=== PATIENT | male | born 1995 | race Caucasian/White ===

== ENCOUNTER 2017-01-03 08:07 | Emergency (ER) | payer SELFPAY ==
--- NOTE | 2017-01-03 09:11 | RAD ---
INDICATION: Right ankle injury. TECHNIQUE: 3 views of the right ankle were obtained. FINDINGS: Soft tissue swelling is noted along the anterolateral aspect of the ankle. No fracture is seen. Joint spaces appear maintained. IMPRESSION: SOFT TISSUE SWELLING, NO FRACTURE IS SEEN.
--- NOTE | 2017-01-03 09:37 | UC ---
Narda Rob Janilya, scribed for Diane Del Cid MD on 01/03/17 at 0841 . Lower Extremity/Ankle HPI - HPI Summary HPI Summary: A 21 y/o male came in to [facility] presenting w/ a gradual onset of constant right ankle pain starting January 03 at around 2000. Pt states he was playing basketball when he rolled his ankle outwards. He was given ice on site. He immediately stopped the game and iced and rested and then and then walked home but could barely put any weight on his foot. At home, pt used ice intermittently every 30 mins. The pain was manageable, however, he woke up in severe pain yesterday morning. He states that the foot was in pain even at rest and there was significant swelling. Subsequently, he visited the student urgent care at [facility]. His ankle was wrapped and he was given crouches. He also took 3 tablets of Ibuprofen 200 mg, which alleviated his Sx. He last took the medication last night at 1900. By the end of the day, he felt much better and was able to ambulate. He feels better today as well, and he is able to bear weight and ambulate. Severity rated 3/10. Pt is accompanied by his father. - History of Current Complaint Stated Complaint: ANKLE INJURY Time Seen by Provider: 01/03/17 08:08 Hx Obtained From: Patient Onset/Duration: Gradual Onset, Lasting Days, Still Present Severity Initially: Moderate Severity Currently: Moderate Aggravating Factor(s): Standing, Ambulation Alleviating Factor(s): Ice, OTC Meds - ibuprofen Able to Bear Weight: Yes - Currently able to bear weight. Pt was not able to bear weight yesterday. - Allergies/Home Medications Allergies/Adverse Reactions: Allergies Allergy/AdvReac Type Severity Reaction Status Date / Time No Known Allergies Allergy Verified 01/03/17 08:25 Home Medications: Home Medications NK [No Home Medications Reported] 01/03/17 [History Confirmed 01/03/17] PMH/Surg Hx/FS Hx/Imm Hx Previously Healthy: Yes - Surgical History Surgical History: None - Family History Known Family History: Negative: Cardiac Disease, Hypertension, Diabetes - Social History Occupation: Student Alcohol Use: None Substance Use Type: None Smoking Status (MU): Never Smoked Tobacco Review of Systems Constitutional: Negative Skin: Negative Eyes: Negative ENT: Negative Respiratory: Negative Cardiovascular: Negative Gastrointestinal: Negative Genitourinary: Negative Motor: Negative Neurovascular: Negative Musculoskeletal: Edema, Other: - right ankle pain Neurological: Negative Psychological: Negative All Other Systems Reviewed And Are Negative: Yes Physical Exam Triage Information Reviewed: Yes Appearance: Well-Appearing Vital Signs: Initial Vital Signs Temp 97.8 F 01/03/17 08:18 Pulse 45 01/03/17 08:18 Resp 16 01/03/17 08:18 BP 116/54 01/03/17 08:18 Pulse Ox 98 01/03/17 08:18 Vital Signs Reviewed: Yes Eye Exam: Normal Eyes: Positive: Conjunctiva Clear ENT: Positive: Normal ENT inspection Dental Exam: Normal Neck: Positive: Supple, Nontender, No Lymphadenopathy Respiratory: Positive: Lungs clear, Normal breath sounds, No respiratory distress, No accessory muscle use Cardiovascular: Positive: RRR, No Murmur, Pulses Normal Abdomen Description: Positive: Nontender, Soft Musculoskeletal: Positive: Other: - Mild ecchymosis of medial side of right foot and ankle, more pronounced distally. No tenderness over 5th metatarsal. DP/ PT pulse bilaterally. Full ROM. Brisk cappilarty refill. Ankle mortise intact. Good strength. Normal plantar and dorsiflexion. Neurological Exam: Normal Psychological Exam: Normal Skin Exam: Normal Diagnostics - Radiology Ankle X-ray Xray Interpretation: No Acute Changes - IMPRESSION: soft tissue swelling. no fracture. Radiology Interpretation Completed By: Radiologist Lower Extremity Course/Dx - Course Course Of Treatment: xray - soft tissue swelling, no fracture. - Differential Dx/Diagnosis Differential Diagnosis/HQI/PQRI: Contusion, Dislocation, Fracture (Closed), Sprain, Strain Provider Diagnoses: right ankle sprain Discharge - Discharge Plan Condition: Stable Disposition: HOME Patient Education Materials: Ankle Sprain (ED), Ankle Exercises (GEN) Referrals: Non Staff,Doctor [Primary Care Provider] - Additional Instructions: xray showed soft tissue swelling, but no fracture. Please follow up at your student health services at [facility]. Avoid activity with soccer and basketball until completely healed. Continue with ice and rest, crutches, wrap and ibuprofen 600mgs for a few days at least and then as needed. \Consider getting another xray in 2 wks if your symptoms are not any better. The documentation as recorded by the scribe, Baizack,Janilya accurately reflects the service I personally performed and the decisions made by , Diane Del Cid MD.
== END 2017-01-03 09:32 | disposition home or self-care (01) ==
LOC: UCEAST 08:07
DX: S93.401A Sprain of unspecified ligament of right ankle, initial encounter (principal); X50.3XXA Overexertion from repetitive movements, initial encounter; Y93.67 Activity, basketball
CPT/HCPCS: 99201; G0463